=== PATIENT | female | born 1960 | race African-American/Black ===

== ENCOUNTER 2016-11-17 13:48 | Inpatient (IN) | payer BC ==
[~2016-11-17] VITALS: Ht 165.1 cm; Wt 90.0 kg
[~2016-11-17 13:48] MED LIST: ADV25050 INH; ALBU8.5H5 IH; AMLO5TAB4 PO; AZIT250T94 PO; BECL8.7A INH; BENA1TAB13 PO; CODE118S PO; FLUT16SP24 NASAL; FURO-109 PO; HYDR-3498 PO; PRED20TA PO; RTPRO NEB
[2016-11-17] MEDS ORDERED: SOD CHLORIDE 0.9% 500 ML IV STA (14:02)
[2016-11-17] MEDS ORDERED: ALBUTEROL 0.5% (NEB) 2.5 MG/0.5 ML AMP INH STA (14:02)
[2016-11-17] MEDS ORDERED: IPRATROPIUM (NEB) 0.5 MG/2.5 ML AMP INH STA (14:02)
[2016-11-17] MEDS ORDERED: METHYLPREDNISOLONE 125 MG INJ IV STA (14:02)
[2016-11-17] MEDS ORDERED: ALBUTEROL 0.5% (NEB) 2.5 MG/0.5 ML AMP ONE (14:03)
[2016-11-17] MEDS ORDERED: IPRATROPIUM (NEB) 0.5 MG/2.5 ML AMP ONE (14:03)
[2016-11-17] MEDS ORDERED: FUROSEMIDE 40 MG INJ IV ONE ×2 (14:30)
[2016-11-17 14:41] LABS: ADD SCAN DIFF NO
--- NOTE | 2016-11-17 14:41 | RADRPT ---
PROCEDURE: XR Chest. CLINICAL INDICATION: Shortness of breath. Asthma exacerbation. TECHNIQUE: Single frontal view. COMPARISON: 02/14/2015. FINDINGS: The lungs are clear. The heart size is normal. There is no pleural effusion. There is no pneumothorax. IMPRESSION: 1. Normal chest radiograph. RPTAT: QQ .Leno Woo MD, MD Date Time Electronically viewed and signed by .Leno Woo MD, on 11/17/2016 14:41 .R/
[2016-11-17 14:45] LABS: BASOPHILS % 0.2 % (0.0-2.0); EOSINOPHILS # 0.1 10^3/ul (0.0-0.5); EOSINOPHILS % 0.7 % (0.0-7.0); HEMATOCRIT 37.1 % (37.0-47.0); HEMOGLOBIN 11.9 g/dl (12.0-16.0); LYMPHOCYTES # 1.4 10^3/ul (0.8-2.9); LYMPHOCYTES % 15.5 % (15.0-51.0); MEAN CORPUSCULAR HEMOGLOBIN 27.6 pg (29.0-33.0); MEAN CORPUSCULAR HGB CONC 32.1 g/dl (32.0-37.0); MEAN CORPUSCULAR VOLUME 86.1 fl (82.0-101.0); MEAN PLATELET VOLUME 10.8 fl (7.4-10.4); MONOCYTE # 0.4 10^3/ul (0.3-0.9); NEUTROPHIL # 6.9 10^3/ul (1.6-7.5); PLATELET COUNT 255 10^3/UL (140-415); RED BLOOD COUNT 4.31 10^6/ul (4.20-5.40); RED CELL DISTRIBUTION WIDTH 14.6 % (11.5-14.5); WHITE BLOOD COUNT 8.9 10^3/ul (4.8-10.8)
--- NOTE | 2016-11-17 14:54 | ERA ---
ER Documentation Chief Complaint Date/Time DATE: 11/17/16 TIME: 14:52 Chief Complaint asthma attack today, out of meds x 1 week HPI 56-year-old woman with long history of asthma presents with shortness of breath. She states she's having an asthma attack and ran out of her albuterol pump about a week ago. She smokes marijuana daily. Patient denies fevers or chills, no vomiting or diarrhea, no chest pain. ROS All systems reviewed and are negative except as per history of present illness. Medications Home Meds Reported Medications Furosemide* (Furosemide*) 40 Mg Tablet, 40 MG PO DAILY, TAB 11/17/16 Hydrocodone/Acetaminophen ([place] 10-325 Tablet) 1 Each Tablet, 1 EACH PO DAILY Y for PRN, TAB 11/17/16 Fluticasone Propionate* (Fluticasone Propionate* Nasal) 50 Mcg/[place] - 16 Gm [place].susp, 1 SPRAY NASAL BID, #1 BOTTLE TO EACH NOSTRIL 11/17/16 Benazepril Hcl* (Benazepril Hcl*) 10 Mg Tablet, 10 MG PO DAILY, #30 TAB 11/17/16 Prednisone* (Prednisone*) 10 Mg Tab, 10 MG PO DAILY, TAB 3TAB-3 DAYS, 2TAB-3 DAYS, 1TAB-3 DAYS 11/17/16 Albuterol Sulfate* (Ventolin HFA*) 18 Gm Hfa.aer.ad, 2 PUFF INHALATION Q4H, #1 INHALER 11/17/16 Discontinued Reported Medications Fluticasone Propionate* (Flonase* Nasal) 50 Mcg/[place] - 16 Gm [place].susp, 1 SPRAY NASAL BID, SPRAY (TO EACH NOSTRIL) 02/02/15 Amlodipine Besylate* (Norvasc*) 5 Mg Tablet, 5 MG PO DAILY, TAB 02/02/15 Hydrocodone Bit-Acetaminophen* ([place]*) 5-325 Mg Tab, 1 TAB PO Q4H Y for PAIN, TAB 02/02/15 Salmeterol Xinaf/Fluticasone* (Advair*) 250-50 Diskus Inhaler, 1 INH INH BID, INH 02/02/15 Benazepril-Hydrochlorothiazide (Benazepril-Hydrochlorothiazide) 20-12.5 Mg Tablet, 1 EACH PO DAILY, TAB 02/02/15 Discontinued Scripts Furosemide* (Lasix*) 40 Mg Tablet, 40 MG PO DAILY, #20 TAB Prov:MARIA ZARAGOZA MD 02/05/15 Beclomethasone Dip* (Qvar 40*) 7.3 Gm Inha, 2 PUFF INH BID, #1 INH Prov:ZORA LAMBERT MD 02/02/15 Albuterol Sulfate* (Albuterol Sulfate* HFA) 8.5 Gm Hfa.aer.ad, 2 PUFF IH Q4H Y for WHEEZING AND SOB, #1 EA Prov:ZORA LAMBERT MD 02/02/15 Albuterol Sulfate* (Proventil* Neb) 0.083% Neb, 2.5 MG NEB Q4 Y for SHORTNESS OF BREATH, #30 EA Prov:ZORA LAMBERT MD 02/02/15 Promethazine w/Codeine (Phenergan w/Codeine Syrup) 5 Ml Syrup, 5 ML PO Q6 Y for COUGH, #120 ML Prov:ZORA LAMBERT MD 02/02/15 Azithromycin* (Zithromax*) 250 Mg Tablet, 250 MG PO .ZPACK DIRECTED, #6 TAB TAKE 500 MG (2 TABS) THE FIRST DAY THEN 250 MG (1 TAB) DAYS 2-5 Prov:ZORA LAMBERT MD 02/02/15 Prednisone* (Prednisone*) 20 Mg Tab, 60 MG PO DAILY for 5 Days Prov:ZORA LAMBERT MD 02/02/15 Allergies Allergies: Coded Allergies: No Known Allergy (Verified , 11/17/16) PMhx/Soc Asthma, hypertension, psychiatric illness, obesity, post cholecystectomy History of Surgery: Yes (FIBROIDS 2006) Anesthesia Reaction: No Hx Neurological Disorder: No Hx Respiratory Disorders: Yes (ASTHMA ) Hx Cardiac Disorders: Yes (HTN ) Hx Psychiatric Problems: No Hx Miscellaneous Medical Probl: No Hx Alcohol Use: No Hx Substance Use: No Hx Tobacco Use: Yes Smoking Status: Current every day smoker FmHx Family History: No diabetes Physical Exam Vitals Vital Signs Date Time Temp Pulse Resp B/P Pulse Ox O2 Delivery O2 Flow Rate FiO2 11/17/16 16:00 74 19 155/80 98 11/17/16 14:37 76 22 151/85 100 Mask 10.0 11/17/16 14:13 108 24 95 21 11/17/16 13:58 Nasal Cannula 2.0 11/17/16 13:52 98.1 78 24 173/92 96 Physical Exam GENERAL: Well-developed, well-nourished, dyspneic HEENT: Moist mucous membranes, pink conjunctiva, no cervical spine tenderness or step-off deformities, no goiter, no jaundice or icterus, extraocular movements intact without pain. No submandibular induration, and no pharyngeal erythema NEURO: Alert and oriented 3, cranial nerves II through XII intact bilaterally, pupils equal round reactive to light, no focal deficits or facial asymmetry, sensation intact distally Strength 5/5 in upper and lower extremities bilaterally CARDIAC: Regular rate and rhythm, no murmurs rubs or gallops LUNGS: Dense wheezes bilaterally, no crackles or stridor ABDOMEN: Soft nontender, no guarding, no rigidity, no rebound, no psoas sign no obturator sign. Normoactive bowel sounds SKIN: Warm and dry to touch, no abrasions, contusions, or hematomas, no lacerations, no ecchymosis, no target lesions, and without ulcers EXTREMITIES: No clubbing cyanosis, 3+ pitting edema in the lower extremities bilaterally calves are bilaterally symmetrical, no Homans sign, no popliteal cord sign. Distal pulses equal and bilateral PSYCH: Normal affect without agitation or irritability Result Diagram: 11/17/16 1430 11/17/16 1430 Results 24 hrs Laboratory Tests Test 11/17/16 14:30 White Blood Count 8.910^3/ul Red Blood Count 4.3110^6/ul Hemoglobin 11.9g/dl Hematocrit 37.1% Mean Corpuscular Volume 86.1fl Mean Corpuscular Hemoglobin 27.6pg Mean Corpuscular Hemoglobin Concent 32.1g/dl Red Cell Distribution Width 14.6% Platelet Count 66951^3/UL Mean Platelet Volume 10.8fl Neutrophils % 78.0% Lymphocytes % 15.5% Monocytes % 5.0% Eosinophils % 0.7% Basophils % 0.2% Nucleated Red Blood Cells % 0.0/100WBC Neutrophils # 6.910^3/ul Lymphocytes # 1.410^3/ul Monocytes # 0.410^3/ul Eosinophils # 0.110^3/ul Basophils # 0.010^3/ul Nucleated Red Blood Cells # 0.010^3/ul Sodium Level 143mmol/L Potassium Level 4.0mmol/L Chloride Level 106mmol/L Carbon Dioxide Level 27mmol/L Anion Gap 14 Blood Urea Nitrogen 23mg/dl Creatinine 0.92mg/dl Glucose Level 128mg/dl Calcium Level 8.8mg/dl Troponin I 0.079ng/ml B-Type Natriuretic Peptide 208PG/ML Triglycerides Level 70mg/dl Cholesterol Level 130mg/dl LDL Cholesterol, Calculated 44mg/dl HDL Cholesterol 72mg/dl Cholesterol/HDL Ratio 1.8RATIO Current Medications Medications (Trade) Dose Ordered Sig/[place] Route PRN Reason Start Time Stop Time Status Last Admin Dose Admin Sodium Chloride (NS) 500 ml @ 500 mls/hr Q1H STAT IV 11/17/16 14:02 11/17/16 15:01 DC 11/17/16 14:24 Albuterol (Proventil 0.5% (Neb)) 10 mg ONCE STAT INH 11/17/16 14:02 11/17/16 14:04 DC 11/17/16 14:12 Ipratropium [place] (Atrovent 0.02% (Neb)) 1 mg ONCE STAT INH 11/17/16 14:02 11/17/16 14:04 DC 11/17/16 14:12 Methylprednisolone Sodium Succinate (Solu-Medrol) 125 mg ONCE STAT IV 11/17/16 14:02 11/17/16 14:04 DC 11/17/16 14:23 Furosemide (Lasix) 40 mg ONCE ONCE IV 11/17/16 14:30 11/17/16 14:31 DC 11/17/16 14:27 Furosemide 40 mg 40 mg ONCE ONCE IV 11/17/16 14:30 11/17/16 14:31 DC 11/17/16 14:46 Magnesium Sulfate/ Dextrose (Magnesium Sulfate 1 Gm/D5W) 100 ml @ 100 mls/hr ONCE ONCE IVPB 11/17/16 15:00 11/17/16 15:59 DC 11/17/16 14:46 Procedures/MDM IV line was established patient was placed on school bus monitor rhythm strip revealed a normal sinus rhythm at about 70 bpm with upright P and T waves. Patient was afebrile. EKG performed, read by me: 67 bpm, normal sinus rhythm, normal axis, no acute ST segment changes, narrow QRS complex, with good R-wave progression in precordial leads. I administered 500 mL normal saline intravenously, albuterol 10 mg via nebulizer , ipratropium 1 mg via nebulizer, methylprednisolone 125 mg IV, and magnesium 1 g IV for asthma. Chest X-ray 1V Interpreted by me: Soft Tissue: No acute abnormalities Bones: No acute abnormalities Mediastinum/Cardiac Silhouette/Lungs: No acute abnormalities CBC and a left lites were unremarkable, liver function tests are normal, troponin was negative. BNP was low. Departure Diagnosis: Primary Impression: Asthma attack Additional Impressions: Peripheral edema Marijuana abuse Condition: CALVIN Jeffery MD Nov 17, 2016 14:54
[2016-11-17 14:57] LABS: CREATININE 0.92 mg/dl (0.44-1.00)
[2016-11-17 14:58] LABS: CALCIUM 8.8 mg/dl (8.4-10.2)
[2016-11-17] MEDS ORDERED: MAGNESIUM SULFATE 1 GM/D5W 100 ML IVPB ONE (15:00)
[2016-11-17] MEDS ORDERED: ALBU18HF INHALATION (15:01)
[2016-11-17] MEDS ORDERED: PRED10TA PO (15:04)
[2016-11-17] MEDS ORDERED: FLUT16SP17 NASAL (15:04)
[2016-11-17] MEDS ORDERED: BENA10TA48 PO (15:04)
[2016-11-17] MEDS ORDERED: FURO40TA4 PO (15:05)
[2016-11-17] MEDS ORDERED: HYDR-902 PO (15:05)
[2016-11-17 15:10] LABS: TROPONIN-I 0.079 ng/ml (0.00-0.12)
--- NOTE | 2016-11-17 16:28 | HP ---
Date/Time of Note Date/Time of Note DATE: 11/17/16 TIME: 16:20 Assessment/Plan VTE Prophylaxis VTE Prophylaxis Intervention: SCD's Assessment/Plan Assessment/Plan -Asthma Exacerbation -admit to floor - resume home meds -Hypertension - -Current Tobacooism - smoking cessation - Psychiatric illness -Obesity - weight managment -SPcholecystectomy - SCD for DVT prophylaxis - Protonix for GI prophylaxis HPI/ROS Admit Date/Time Admit Date/Time Hx of Present Illness asthma attack today, out of meds x 1 week ROS All systems reviewed and are negative except as per history of present illness. Medications Home Meds Active Scripts Furosemide* (Lasix*) 40 Mg Tablet, 40 MG PO DAILY, #20 TAB Prov:MARIA ZARAGOZA MD 02/05/15 Beclomethasone Dip* (Qvar 40*) 7.3 Gm Inha, 2 PUFF INH BID, #1 INH Prov:ZORA LAMBERT MD 02/02/15 Albuterol Sulfate* (Albuterol Sulfate* HFA) 8.5 Gm Hfa.aer.ad, 2 PUFF IH Q4H Y for WHEEZING AND SOB, #1 EA Prov:ZORA LAMBERT MD 02/02/15 Albuterol Sulfate* (Proventil* Neb) 0.083% Neb, 2.5 MG NEB Q4 Y for SHORTNESS OF BREATH, #30 EA Prov:ZORA LAMBERT MD 02/02/15 Promethazine w/Codeine (Phenergan w/Codeine Syrup) 5 Ml Syrup, 5 ML PO Q6 Y for COUGH, #120 ML Prov:ZORA LAMBERT MD 02/02/15 Azithromycin* (Zithromax*) 250 Mg Tablet, 250 MG PO .ZPACK DIRECTED, #6 TAB TAKE 500 MG (2 TABS) THE FIRST DAY THEN 250 MG (1 TAB) DAYS 2-5 Prov:ZORA LAMBERT MD 02/02/15 Prednisone* (Prednisone*) 20 Mg Tab, 60 MG PO DAILY for 5 Days Prov:ZORA LAMBERT MD 02/02/15 Reported Medications Fluticasone Propionate* (Flonase* Nasal) 50 Mcg/[place] - 16 Gm [place].susp, 1 SPRAY NASAL BID, SPRAY (TO EACH NOSTRIL) 6/24/15 Amlodipine Besylate* (Norvasc*) 5 Mg Tablet, 5 MG PO DAILY, TAB 02/02/15 Hydrocodone Bit-Acetaminophen* ([place]*) 5-325 Mg Tab, 1 TAB PO Q4H Y for PAIN, TAB 02/02/15 Salmeterol Xinaf/Fluticasone* (Advair*) 250-50 Diskus Inhaler, 1 INH INH BID, INH 02/02/15 Benazepril-Hydrochlorothiazide (Benazepril-Hydrochlorothiazide) 20-12.5 Mg Tablet, 1 EACH PO DAILY, TAB 02/02/15 Allergies Allergies: Coded Allergies: No Known Allergy (Verified , 02/14/15) ROS Constitutional: improved Eyes: no complaints ENT: no complaints Respiratory: shortness of breath, wheezing Cardiovascular: no complaints Gastrointestinal: no complaints Genitourinary: no complaints Musculoskeletal: no complaints Skin: no complaints Neurologic: no complaints Endocrine: no complaints Lymphatic: no complaints Psychological: no complaints Immunologic: no complaints PMH/Family/Social Past Medical History PMhx/Soc Asthma, hypertension, psychiatric illness, obesity, post cholecystectomy History of Surgery: Yes (FIBROIDS 2006) Anesthesia Reaction: No Hx Neurological Disorder: No Hx Respiratory Disorders: Yes (ASTHMA ) Hx Cardiac Disorders: Yes (HTN ) Hx Psychiatric Problems: No Hx Miscellaneous Medical Probl: No Hx Alcohol Use: No Hx Substance Use: No Hx Tobacco Use: Yes Smoking Status: Current every day smoker FmHx Family History: No diabetes Family History Significant Family History: no pertinent family hx Social History Alcohol Use: none Smoking Status: Current every day smoker Drug Use: other (WEEDS) Exam/Review of Systems Vital Signs Vitals Vital Signs Date Time Temp Pulse Resp B/P Pulse Ox O2 Delivery O2 Flow Rate FiO2 11/17/16 14:37 76 22 151/85 100 Mask 10.0 11/17/16 14:13 21 11/17/16 13:52 98.1 Exam Constitutional: alert, oriented, other Psych: nl mood/affect Head: normocephalic Eyes: EOMI, nl conjunctiva, nl sclera ENMT: nl external ears & nose Neck: non-tender Respiratory: wheezing Cardiovascular: nl pulses Gastrointestinal: non-tender, soft Musculoskeletal: nl extremities to inspection Extremities: normal pulses Neurological: nl mental status, nl speech Skin: nl turgor Lymph: nontender Labs Result Diagram: 4/8/17 1430 11/17/16 1430 Procedures Procedures EKG performed - 67 bpm, normal sinus rhythm, normal axis, no acute ST segment changes, narrow QRS complex, with good R-wave progression in precordial leads. CXR- WNL JACOB GILES Nov 17, 2016 16:28
[2016-11-17] MEDS ORDERED: HYDROCODONE/APAP (5/325) TAB PO PRN (17:00)
[2016-11-17] MEDS ORDERED: HYDROCODONE/APAP (10/325) TAB PO PRN (17:00)
[2016-11-17] MEDS ORDERED: ONDANSETRON 4 MG INJ IV PRN (17:00)
[2016-11-17] MEDS ORDERED: ACETAMINOPHEN 325 MG TAB PO PRN (17:00)
[2016-11-17 17:10] LABS: CHOL/HDL RATIO 1.8 RATIO
[2016-11-17] MEDS ORDERED: CEFTRIAXONE 1 GM/50 ML (PMX) 50 ML IVPB SCH (17:30)
[2016-11-17] MEDS: ALBUTEROL HFA 8 GM INHALER INH SCH ×2 (17:50→22:46)
[2016-11-17] MEDS: IPRATROPIUM (NEB) 0.5 MG/2.5 ML AMP HHN SCH (18:00)
[2016-11-17] MEDS ORDERED: ALBUTEROL/IPRATROPIUM (NEB) 3 ML AMP HHN STA (18:26)
[2016-11-17] MEDS ORDERED: MONTELUKAST 10 MG TAB PO SCH (18:30)
[2016-11-17 19:11] VITALS: PULSE 90
[2016-11-17 19:12] VITALS: Ht 165.1 cm; Wt 90.0 kg
[2016-11-17] MEDS: BENAZEPRIL 10 MG TAB PO SCH (20:19)
[2016-11-17] MEDS: PROMETHAZINE/CODEINE 5ML CUP PO PRN (20:19)
[2016-11-17] MEDS: METHYLPREDNISOLONE 125 MG INJ IV SCH (20:19)
[2016-11-17 20:23] VITALS: PULSE 95
[2016-11-17 20:40] VITALS: BP 181/84; RESP 18
[2016-11-17] MEDS ORDERED: METHYLPREDNISOLONE 40 MG INJ IV SCH ×2 (21:00)
[2016-11-17] MEDS: FLUTICASONE 0.05% 16 GM NAS SPRAY NASAL SCH (22:45)
[2016-11-17] MEDS: SALMETEROL/FLUTICASONE 500/50 INHA INH SCH (22:45)
[2016-11-18] VITALS (7 sets, daily range): BP systolic 141–191; BP diastolic 77–94; PULSE 60–100; RESP 16–20
[2016-11-18] MEDS: AMLODIPINE 5 MG TAB PO SCH ×2 (01:00→08:15)
[2016-11-18] MEDS: hydrALAzine 20 MG INJ IV SCH ×3 (01:00→08:20)
[2016-11-18] MEDS: ALBUTEROL HFA 8 GM INHALER INH SCH ×2 (01:02→05:45)
[2016-11-18] MEDS: IPRATROPIUM (NEB) 0.5 MG/2.5 ML AMP HHN SCH ×2 (01:24→09:12)
[2016-11-18] MEDS: PROMETHAZINE/CODEINE 5ML CUP PO PRN (01:36)
--- NOTE | 2016-11-18 03:15 | CONS ---
DATE OF ADMISSION: 11/17/2016 DATE OF CONSULTATION: 11/17/2016 TYPE OF CONSULTATION: Pulmonary. PRIMARY PHYSICIAN: Dr. Jacob Giles REASON FOR CONSULTATION: Shortness of breath. HISTORY OF PRESENT ILLNESS: Briefly, this is a 56-year-old female with a history of persistent asth ma status post prior exacerbations requiring chronic corticosteroids despite suboptimal management w ith inhaled corticosteroids and bronchodilators who presents today after smoking some marijuana with acute bronchospasm. In the emergency room, the patient received magnesium sulfate, Solu-Medrol, an d bronchodilators and has had significant improvement already. PAST MEDICAL HISTORY: As noted above. Additionally, history of obesity, possible obstructive sleep apnea. MEDICATIONS: Please see MAR. ALLERGIES: NONE. SOCIAL HISTORY: Positive tobacco, no alcohol or illicit drug use. FAMILY HISTORY: Noncontributory. REVIEW OF SYSTEMS: As noted in the HPI. PHYSICAL EXAMINATION: VITAL SIGNS: Heart rate is 108, blood pressure is 173/92, oxygen saturation is 96% on 2 liters nasa l cannula. HEENT: Normocephalic, atraumatic. Oropharynx is crowded with a lot of redundant soft tissue. CARDIOVASCULAR: Tachycardic, S1 and S2. No murmurs, rubs, or gallops. CHEST: There is diffuse wheezing bilaterally and slightly reduced breath sounds. ABDOMEN: Obese, nontender. EXTREMITIES: No cyanosis, clubbing, or edema. LABORATORY DATA: Chemistries within normal limits. WBC is 8.9, hemoglobin is 11.9. Chest x-ray is within normal limits. IMPRESSION: Acute asthma exacerbation, likely precipitated by inhalation of smoke in a patient with poorly controlled and managed asthma. RECOMMENDATIONS: 1. Nebulized treatments around the clock. 2. Solu-Medrol 60 mg IV q. 8 hours for now. 3. Would start Singulair 10 mg p.o. at bedtime. 4. We will start long-acting beta agonist inhaled glucocorticoid with Advair 250/50, two puffs b.i. d. 5. May need to address her underlying allergy issues as well as diagnose and treat suspected sleep apnea as that may also trigger her asthma to be poorly controlled. Dictated By: MICHELE ROBERTS/YOSELIN Conf#: [id number] DID#: [id number] CC: JACOB GILES NP; TASHIA FARRELL MD;*EndCC*
[2016-11-18] MEDS: METHYLPREDNISOLONE 125 MG INJ IV SCH (05:46)
[2016-11-18 06:43] LABS: ALBUMIN 4.2 g/dl (3.3-4.9)
[2016-11-18 06:44] LABS: POTASSIUM 3.5 mmol/L (3.5-5.1)
[2016-11-18 06:46] LABS: ALBUMIN/GLOBULIN RATIO 1.2; BILIRUBIN,INDIRECT 0.2 mg/dl (0-1.1); BILIRUBIN,TOTAL 0.2 mg/dl (0.2-1.3); CREATININE 0.9 mg/dl (0.44-1.00); TOTAL PROTEIN 7.7 g/dl (6.1-8.1)
[2016-11-18 06:47] LABS: CALCIUM 9.6 mg/dl (8.4-10.2)
[2016-11-18] MEDS: SALMETEROL/FLUTICASONE 500/50 INHA INH SCH (08:11)
[2016-11-18] MEDS: FLUTICASONE 0.05% 16 GM NAS SPRAY NASAL SCH (08:11)
[2016-11-18] MEDS: BENAZEPRIL 10 MG TAB PO SCH (08:15)
[2016-11-18] MEDS ORDERED: FUROSEMIDE 40 MG TAB PO SCH (09:00)
[2016-11-18] MEDS ORDERED: ENOXAPARIN 40 MG/0.4 ML SYG SC SCH (09:00)
[2016-11-18] MEDS ORDERED: DOCUSATE SODIUM 100 MG CAP PO SCH (09:00)
[2016-11-18] MEDS ORDERED: NICOTINE (14 MG/24 HR) PATCH TRANSDERM SCH (09:00)
[2016-11-18] MEDS ORDERED: AMLODIPINE 5 MG TAB PO SCH (09:00)
[2016-11-18] MEDS ORDERED: PANTOPRAZOLE (EC) 40 MG TAB PO SCH (09:00)
[2016-11-18] MEDS ORDERED: FUROSEMIDE 40 MG INJ IV SCH (09:00)
--- NOTE | 2016-11-18 11:53 | CONS ---
Date/Time of Note Date/Time of Note DATE: 11/18/16 TIME: 11:49 Consult Date/Type/Reason Admit Date/Time Nov 17, 2016 at 16:18 Initial Consult Date Subjective Patient requesting to leave and wanting to sign AMA. Objective Vital Signs Date Time Temp Pulse Resp B/P Pulse Ox O2 Delivery O2 Flow Rate FiO2 11/18/16 09:15 104 20 94 21 11/18/16 09:15 11/18/16 07:41 97.9 174/80 Exam HEENT: Neck supple; no JVD; no LAD CVS: RRR, S1 and S2 CHEST: + wheezing ABD: Soft, NT, + BS EXT: No c/c/e Results/Medications Result Diagram: 11/17/16 1430 11/18/16 0550 Results 24 hrs Laboratory Tests Test 11/17/16 14:30 11/18/16 05:50 White Blood Count 8.9 Red Blood Count 4.31 Hemoglobin 11.9 L Hematocrit 37.1 Mean Corpuscular Volume 86.1 Mean Corpuscular Hemoglobin 27.6 L Mean Corpuscular Hemoglobin Concent 32.1 Red Cell Distribution Width 14.6 H Platelet Count 255 Mean Platelet Volume 10.8 #H Neutrophils % 78.0 H Lymphocytes % 15.5 Monocytes % 5.0 Eosinophils % 0.7 Basophils % 0.2 Nucleated Red Blood Cells % 0.0 Neutrophils # 6.9 Lymphocytes # 1.4 Monocytes # 0.4 Eosinophils # 0.1 Basophils # 0.0 Nucleated Red Blood Cells # 0.0 Sodium Level 143 142 Potassium Level 4.0 3.5 Chloride Level 106 102 Carbon Dioxide Level 27 27 Anion Gap 14 17 H Blood Urea Nitrogen 23 H 24 H Creatinine 0.92 0.90 Glucose Level 128 174 Calcium Level 8.8 9.6 Troponin I 0.079 B-Type Natriuretic Peptide 208 H Triglycerides Level 70 Cholesterol Level 130 LDL Cholesterol, Calculated 44 HDL Cholesterol 72 Cholesterol/HDL Ratio 1.8 Magnesium Level 2.1 Total Bilirubin 0.2 Direct Bilirubin 0.00 Indirect Bilirubin 0.2 Aspartate Amino Transf (AST/SGOT) 24 Alanine Aminotransferase (ALT/SGPT) 31 Alkaline Phosphatase 111 Total Protein 7.7 Albumin 4.2 Globulin 3.50 H Albumin/Globulin Ratio 1.20 Assessment/Plan Additional Assessment/Plan IMP: 1. Asthma Exacerbation RECS: 1. Advair 500/50 i puff BID; singulair 10 mg daily; and albuterol prn 2. Medrol dose pack 3. Outpatient PFTs and PSG MICHELE ELMORE MD Nov 18, 2016 11:53
--- NOTE | 2016-11-18 18:03 | DS ---
Date/Time of Note Date/Time of Note DATE: 11/18/16 TIME: 18:03 Discharge Summary Admission/Discharge Info Admit Date/Time Nov 17, 2016 at 16:18 Discharge Date/Time Nov 18, 2016 at 10:55 Hx of Present Illness asthma attack today, out of meds x 1 week ROS All systems reviewed and are negative except as per history of present illness. Medications Home Meds Active Scripts Furosemide* (Lasix*) 40 Mg Tablet, 40 MG PO DAILY, #20 TAB Prov:MARIA ZARAGOZA MD 02/05/15 Beclomethasone Dip* (Qvar 40*) 7.3 Gm Inha, 2 PUFF INH BID, #1 INH Prov:ZORA LAMBERT MD 02/02/15 Albuterol Sulfate* (Albuterol Sulfate* HFA) 8.5 Gm Hfa.aer.ad, 2 PUFF IH Q4H Y for WHEEZING AND SOB, #1 EA Prov:ZORA LAMBERT MD 02/02/15 Albuterol Sulfate* (Proventil* Neb) 0.083% Neb, 2.5 MG NEB Q4 Y for SHORTNESS OF BREATH, #30 EA Prov:ZORA LAMBERT MD 02/02/15 Promethazine w/Codeine (Phenergan w/Codeine Syrup) 5 Ml Syrup, 5 ML PO Q6 Y for COUGH, #120 ML Prov:ZORA LAMBERT MD 02/02/15 Azithromycin* (Zithromax*) 250 Mg Tablet, 250 MG PO .ZPACK DIRECTED, #6 TAB TAKE 500 MG (2 TABS) THE FIRST DAY THEN 250 MG (1 TAB) DAYS 2-5 Prov:ZORA LAMBERT MD 02/02/15 Prednisone* (Prednisone*) 20 Mg Tab, 60 MG PO DAILY for 5 Days Prov:ZORA LAMBERT MD 02/02/15 Reported Medications Fluticasone Propionate* (Flonase* Nasal) 50 Mcg/[place] - 16 Gm [place].susp, 1 SPRAY NASAL BID, SPRAY (TO EACH NOSTRIL) 02/02/15 Amlodipine Besylate* (Norvasc*) 5 Mg Tablet, 5 MG PO DAILY, TAB 02/02/15 Hydrocodone Bit-Acetaminophen* ([place]*) 5-325 Mg Tab, 1 TAB PO Q4H Y for PAIN, TAB 02/02/15 Salmeterol Xinaf/Fluticasone* (Advair*) 250-50 Diskus Inhaler, 1 INH INH BID, INH 02/02/15 Benazepril-Hydrochlorothiazide (Benazepril-Hydrochlorothiazide) 20-12.5 Mg Tablet, 1 EACH PO DAILY, TAB 02/02/15 Allergies Allergies: Coded Allergies: No Known Allergy (Verified , 02/14/15) Home Meds Reported Medications Furosemide* (Furosemide*) 40 Mg Tablet, 40 MG PO DAILY, TAB 11/17/16 Hydrocodone/Acetaminophen ([place] 10-325 Tablet) 1 Each Tablet, 1 EACH PO DAILY Y for PRN, TAB 11/17/16 Fluticasone Propionate* (Fluticasone Propionate* Nasal) 50 Mcg/[place] - 16 Gm [place].susp, 1 SPRAY NASAL BID, #1 BOTTLE TO EACH NOSTRIL 11/17/16 Benazepril Hcl* (Benazepril Hcl*) 10 Mg Tablet, 10 MG PO DAILY, #30 TAB 11/17/16 Prednisone* (Prednisone*) 10 Mg Tab, 10 MG PO DAILY, TAB 3TAB-3 DAYS, 2TAB-3 DAYS, 1TAB-3 DAYS 11/17/16 Albuterol Sulfate* (Ventolin HFA*) 18 Gm Hfa.aer.ad, 2 PUFF INHALATION Q4H, #1 INHALER 11/17/16 Discontinued Reported Medications Fluticasone Propionate* (Flonase* Nasal) 50 Mcg/[place] - 16 Gm [place].susp, 1 SPRAY NASAL BID, SPRAY (TO EACH NOSTRIL) 02/02/15 Amlodipine Besylate* (Norvasc*) 5 Mg Tablet, 5 MG PO DAILY, TAB 02/02/15 Hydrocodone Bit-Acetaminophen* ([place]*) 5-325 Mg Tab, 1 TAB PO Q4H Y for PAIN, TAB 02/02/15 Salmeterol Xinaf/Fluticasone* (Advair*) 250-50 Diskus Inhaler, 1 INH INH BID, INH 02/02/15 Benazepril-Hydrochlorothiazide (Benazepril-Hydrochlorothiazide) 20-12.5 Mg Tablet, 1 EACH PO DAILY, TAB 02/02/15 Discontinued Scripts Furosemide* (Lasix*) 40 Mg Tablet, 40 MG PO DAILY, #20 TAB Prov:BUSELLI,MARIA V. MD 02/05/15 Beclomethasone Dip* (Qvar 40*) 7.3 Gm Inha, 2 PUFF INH BID, #1 INH Prov:ZOAR LAMBERT MD 02/02/15 Albuterol Sulfate* (Albuterol Sulfate* HFA) 8.5 Gm Hfa.aer.ad, 2 PUFF IH Q4H Y for WHEEZING AND SOB, #1 EA Prov:ZORA LAMBERT MD 02/02/15 Albuterol Sulfate* (Proventil* Neb) 0.083% Neb, 2.5 MG NEB Q4 Y for SHORTNESS OF BREATH, #30 EA Prov:ZORA LAMBERT MD 02/02/15 Promethazine w/Codeine (Phenergan w/Codeine Syrup) 5 Ml Syrup, 5 ML PO Q6 Y for COUGH, #120 ML Prov:ZORA LAMBERT MD 02/02/15 Azithromycin* (Zithromax*) 250 Mg Tablet, 250 MG PO .[place]PACK DIRECTED, #6 TAB TAKE 500 MG (2 TABS) THE FIRST DAY THEN 250 MG (1 TAB) DAYS 2-5 Prov:ZORA LAMBERT MD 02/02/15 Prednisone* (Prednisone*) 20 Mg Tab, 60 MG PO DAILY for 5 Days Prov:ZORA LAMBERT MD 02/02/15 Pending Labs Laboratory Tests Test 11/18/16 05:50 Sodium Level 142mmol/L (135-144) Potassium Level 3.5mmol/L (3.5-5.1) Chloride Level 102mmol/L (97-110) Carbon Dioxide Level 27mmol/L (21-31) Anion Gap 17 (8-16) Blood Urea Nitrogen 24mg/dl (7-20) Creatinine 0.90mg/dl (0.44-1.00) Glucose Level 174mg/dl (70-220) Calcium Level 9.6mg/dl (8.4-10.2) Magnesium Level 2.1mg/dl (1.7-2.5) Total Bilirubin 0.2mg/dl (0.2-1.3) Direct Bilirubin 0.00mg/dl (0.00-0.20) Indirect Bilirubin 0.2mg/dl (0-1.1) Aspartate Amino Transf (AST/SGOT) 24IU/L (15-46) Alanine Aminotransferase (ALT/SGPT) 31IU/L (13-69) Alkaline Phosphatase 111IU/L (42-121) Total Protein 7.7g/dl (6.1-8.1) Albumin 4.2g/dl (3.3-4.9) Globulin 3.50g/dl (1.3-3.2) Albumin/Globulin Ratio 1.20 JACOB GILES Nov 18, 2016 18:03
== END 2016-11-18 10:55 | disposition left against medical advice (07) | DRG 203 ==
LOC: E/R 13:48 → MS4 16:18
PROVIDERS: ADMIT Internal Medicine; ATTEND Internal Medicine
DX: J45.901 Unspecified asthma with (acute) exacerbation (principal); I10 Essential (primary) hypertension; E66.9 Obesity, unspecified; Z68.33 Body mass index [BMI] 33.0-33.9, adult; F12.10 Cannabis abuse, uncomplicated
CPT/HCPCS: 71010; 80048; 80053; 80061; 83735; 83880; 84484; 85025; 93005; 94640; 94644; 94664; 96374; 96375; J0360; J0696; J1650; J1940; J2930; J3475; J7040

== ENCOUNTER 2016-11-19 23:59 | Inpatient (IN) | payer BC ==
[~2016-11-19] VITALS: Ht 149.9 cm; Wt 111.8 kg
[~2016-11-19 23:59] MED LIST changes: -ADV25050 INH; +ALBU18HF INHALATION; -ALBU8.5H5 IH; -AMLO5TAB4 PO; -AZIT250T94 PO; -BECL8.7A INH; +BENA10TA48 PO; -BENA1TAB13 PO; -CODE118S PO; +FLUT16SP17 NASAL; -FLUT16SP24 NASAL; -FURO-109 PO; +FURO40TA4 PO; -HYDR-3498 PO; +HYDR-902 PO; +PRED10TA PO; -PRED20TA PO; -RTPRO NEB
[2016-11-20] MEDS ORDERED: METHYLPREDNISOLONE 125 MG INJ IV STA (01:16)
[2016-11-20] MEDS ORDERED: ALBUTEROL 0.5% (NEB) 2.5 MG/0.5 ML AMP INH STA (01:16)
[2016-11-20] MEDS ORDERED: IPRATROPIUM (NEB) 0.5 MG/2.5 ML AMP INH STA (01:16)
[2016-11-20 01:48] LABS: ADD SCAN DIFF NO
[2016-11-20 01:52] LABS: BASOPHILS % 0.3 % (0.0-2.0); HEMATOCRIT 39.1 % (37.0-47.0); HEMOGLOBIN 12.9 g/dl (12.0-16.0); LYMPHOCYTES # 1.8 10^3/ul (0.8-2.9); LYMPHOCYTES % 12.3 % (15.0-51.0); MEAN CORPUSCULAR HEMOGLOBIN 27.7 pg (29.0-33.0); MEAN CORPUSCULAR VOLUME 83.9 fl (82.0-101.0); MEAN PLATELET VOLUME 10.6 fl (7.4-10.4); MONOCYTE # 1.2 10^3/ul (0.3-0.9); MONOCYTES % 8.2 % (0.0-11.0); NEUTROPHIL # 11.4 10^3/ul (1.6-7.5); NEUTROPHILS % 77.7 % (39.0-77.0); PLATELET COUNT 302 10^3/UL (140-415); RED BLOOD COUNT 4.66 10^6/ul (4.20-5.40); RED CELL DISTRIBUTION WIDTH 14.7 % (11.5-14.5); WHITE BLOOD COUNT 14.6 10^3/ul (4.8-10.8)
[2016-11-20 02:04] LABS: POTASSIUM 3.5 mmol/L (3.5-5.1)
[2016-11-20 02:07] LABS: CALCIUM 9.3 mg/dl (8.4-10.2); CREATININE 1.08 mg/dl (0.44-1.00)
--- NOTE | 2016-11-20 02:23 | ERA ---
ER Documentation Chief Complaint Date/Time DATE: 11/20/16 TIME: 02:21 Chief Complaint SOB X2 DAY LEFT AMA 2 DAYS AGO ADMITTED FOR PNA HPI This is a 56-year-old female who comes in shortness breath for 2 days. She is been present for days ago and left AMA. She continues to complain of shortness of breath and says she has gotten somewhat worse. No fevers no chills no nausea no vomiting no other current complaints ROS All systems reviewed and are negative except as per history of present illness. Medications Home Meds Reported Medications Furosemide* (Furosemide*) 40 Mg Tablet, 40 MG PO DAILY, TAB 11/17/16 Hydrocodone/Acetaminophen ([place] 10-325 Tablet) 1 Each Tablet, 1 EACH PO DAILY Y for PRN, TAB 11/17/16 Fluticasone Propionate* (Fluticasone Propionate* Nasal) 50 Mcg/[place] - 16 Gm [place].susp, 1 SPRAY NASAL BID, #1 BOTTLE TO EACH NOSTRIL 11/17/16 Benazepril Hcl* (Benazepril Hcl*) 10 Mg Tablet, 10 MG PO DAILY, #30 TAB 11/17/16 Prednisone* (Prednisone*) 10 Mg Tab, 10 MG PO DAILY, TAB 3TAB-3 DAYS, 2TAB-3 DAYS, 1TAB-3 DAYS 11/17/16 Albuterol Sulfate* (Ventolin HFA*) 18 Gm Hfa.aer.ad, 2 PUFF INHALATION Q4H, #1 INHALER 11/17/16 Discontinued Reported Medications Fluticasone Propionate* (Flonase* Nasal) 50 Mcg/[place] - 16 Gm [place].susp, 1 SPRAY NASAL BID, SPRAY (TO EACH NOSTRIL) 02/02/15 Amlodipine Besylate* (Norvasc*) 5 Mg Tablet, 5 MG PO DAILY, TAB 02/02/15 Hydrocodone Bit-Acetaminophen* ([place]*) 5-325 Mg Tab, 1 TAB PO Q4H Y for PAIN, TAB 02/02/15 Salmeterol Xinaf/Fluticasone* (Advair*) 250-50 Diskus Inhaler, 1 INH INH BID, INH 02/02/15 Benazepril-Hydrochlorothiazide (Benazepril-Hydrochlorothiazide) 20-12.5 Mg Tablet, 1 EACH PO DAILY, TAB 02/02/15 Discontinued Scripts Furosemide* (Lasix*) 40 Mg Tablet, 40 MG PO DAILY, #20 TAB Prov:MARIA ZARAGOZA MD 02/05/15 Beclomethasone Dip* (Qvar 40*) 7.3 Gm Inha, 2 PUFF INH BID, #1 INH Prov:ZORA LAMBERT MD 02/02/15 Albuterol Sulfate* (Albuterol Sulfate* HFA) 8.5 Gm Hfa.aer.ad, 2 PUFF IH Q4H Y for WHEEZING AND SOB, #1 EA Prov:ZORA LAMBERT MD 02/02/15 Albuterol Sulfate* (Proventil* Neb) 0.083% Neb, 2.5 MG NEB Q4 Y for SHORTNESS OF BREATH, #30 EA Prov:ZORA LAMBERT MD 02/02/15 Promethazine w/Codeine (Phenergan w/Codeine Syrup) 5 Ml Syrup, 5 ML PO Q6 Y for COUGH, #120 ML Prov:ZORA LAMBERT MD 02/02/15 Azithromycin* (Zithromax*) 250 Mg Tablet, 250 MG PO .ZPACK DIRECTED, #6 TAB TAKE 500 MG (2 TABS) THE FIRST DAY THEN 250 MG (1 TAB) DAYS 2-5 Prov:ZORA LAMBERT MD 02/02/15 Prednisone* (Prednisone*) 20 Mg Tab, 60 MG PO DAILY for 5 Days Prov:ZORA LAMBERT MD 02/02/15 Allergies Allergies: Coded Allergies: hydralazine (Unverified Allergy, Intermediate, CHEST TIGHTNESS, ITCHING, ) PMhx/Soc History of Surgery: No Anesthesia Reaction: No Hx Neurological Disorder: No Hx Respiratory Disorders: Yes (ASTHMNA) Hx Cardiac Disorders: Yes (HTN) Hx Psychiatric Problems: No Hx Alcohol Use: No Hx Substance Use: No Hx Tobacco Use: No Smoking Status: Never smoker Physical Exam Vitals Vital Signs Date Time Temp Pulse Resp B/P Pulse Ox O2 Delivery O2 Flow Rate FiO2 11/20/16 02:01 6 11/20/16 02:01 98.0 69 24 127/77 98 Mask 6.0 Nasal Cannula 11/20/16 01:28 80 24 93 21 11/20/16 00:07 98.5 107 24 131/86 95 Physical Exam Const: [] Head: Atraumatic Eyes: Normal Conjunctiva ENT: Normal External Ears, Nose and Mouth. Neck: Full range of motion..~ No meningismus. Resp: Clear to auscultation bilaterally Cardio: Regular rate and rhythm, no murmurs Abd: Soft, non tender, non distended. Normal bowel sounds Skin: No petechiae or rashes Back: No midline or flank tenderness Ext: No cyanosis, or edema Neur: Awake and alert Psych: Normal Mood and Affect Result Diagram: 11/20/1613711/20/16137 Results 24 hrs Laboratory Tests Test 11/20/16 01:38 White Blood Count 14.610^3/ul Red Blood Count 4.6610^6/ul Hemoglobin 12.9g/dl Hematocrit 39.1% Mean Corpuscular Volume 83.9fl Mean Corpuscular Hemoglobin 27.7pg Mean Corpuscular Hemoglobin Concent 33.0g/dl Red Cell Distribution Width 14.7% Platelet Count 46646^3/UL Mean Platelet Volume 10.6fl Neutrophils % 77.7% Lymphocytes % 12.3% Monocytes % 8.2% Eosinophils % 0.0% Basophils % 0.3% Nucleated Red Blood Cells % 0.0/100WBC Neutrophils # 11.410^3/ul Lymphocytes # 1.810^3/ul Monocytes # 1.210^3/ul Eosinophils # 0.010^3/ul Basophils # 0.010^3/ul Nucleated Red Blood Cells # 0.010^3/ul Sodium Level 142mmol/L Potassium Level 3.5mmol/L Chloride Level 98mmol/L Carbon Dioxide Level 33mmol/L Anion Gap 15 Blood Urea Nitrogen 31mg/dl Creatinine 1.08mg/dl Glucose Level 131mg/dl Calcium Level 9.3mg/dl Current Medications Medications (Trade) Dose Ordered Sig/[place] Route PRN Reason Start Time Stop Time Status Last Admin Dose Admin Albuterol (Proventil 0.5% (Neb)) 10 mg ONCE STAT INH 11/20/16 01:16 11/20/16 01:17 DC 11/20/16 01:22 Ipratropium [place] (Atrovent 0.02% (Neb)) 1 mg ONCE STAT INH 11/20/16 01:16 11/20/16 01:17 DC 11/20/16 01:22 Methylprednisolone Sodium Succinate (Solu-Medrol) 125 mg ONCE STAT IV 11/20/16 01:16 11/20/16 01:18 DC 11/20/16 02:00 Procedures/MDM EKG: Rate/Rhythm: Normal Sinus Rhythm QRS, ST, T-waves: No changes consistent w/ acute ischemia Impression: No evidence of ischemia or arrhythmia Chest X-ray 1V Interpreted by me: Soft Tissue: No acute abnormalities Bones: No acute abnormalities Mediastinum/Cardiac Silhouette/Lungs: No acute abnormalities Patient's respiratory symptoms have not responded to normal outpatient therapy and will require inpatient workup, monitoring, and treatment. Accepting Care Team: Current data and ongoing care discussed. Time: 225 Primary Provider: Dr. Rueda who is on-call for Dr. Morales Consulting: [XOXOXO] Outstanding Data: none Departure Diagnosis: Primary Impression: Asthma Qualified Code: J45.901 - Asthma with acute exacerbation, unspecified asthma severity Condition: Serious MOUNIKA DUMONT Nov 20, 2016 02:23
--- NOTE | 2016-11-20 02:26 | RADRPT ---
PROCEDURE: Chest. CLINICAL INDICATION: Chest pain. TECHNIQUE: Single frontal view of the chest was obtained. COMPARISON: 02/14/2015. FINDINGS: The cardiac silhouette is within normal limits. The aortic arch is unremarkable. There is no focal consolidation, vascular congestion or pleural effusion. There is no pneumothorax. IMPRESSION: No evidence for active cardiopulmonary disease. .Ozzie Merida MD, MD Date Time Electronically viewed and signed by .Ozzie Merida MD, on 11/20/2016 02:26 .T/
[2016-11-20 03:17] VITALS: TEMP 97.7
[2016-11-20 03:55] VITALS: Ht 149.9 cm; Wt 111.8 kg
[2016-11-20 04:00] VITALS: BP 151/71; PULSE 67; RESP 20
[2016-11-20] MEDS ORDERED: ALBUTEROL/IPRATROPIUM (NEB) 3 ML AMP HHN PRN (06:30)
[2016-11-20 08:01] VITALS: BP 150/75; RESP 18
[2016-11-20] MEDS: FLUTICASONE 0.05% 16 GM NAS SPRAY NASAL SCH ×2 (08:42→21:03)
[2016-11-20] MEDS: HYDROCODONE/APAP (10/325) TAB PO PRN ×2 (08:42→21:07)
[2016-11-20] MEDS: BENAZEPRIL 10 MG TAB PO SCH (08:42)
[2016-11-20] MEDS: ALBUTEROL HFA 8 GM INHALER INH SCH ×5 (08:43→22:55)
[2016-11-20] MEDS ORDERED: FUROSEMIDE 40 MG TAB PO SCH (09:00)
[2016-11-20] MEDS ORDERED: predniSONE 10 MG TAB PO SCH (09:00)
[2016-11-20] MEDS ORDERED: METHYLPREDNISOLONE 40 MG INJ IV SCH (09:00)
[2016-11-20 10:52] LABS: ADD SCAN DIFF NO
[2016-11-20 10:57] LABS: BASOPHILS % 0.1 % (0.0-2.0); HEMATOCRIT 41.9 % (37.0-47.0); HEMOGLOBIN 13.1 g/dl (12.0-16.0); MEAN CORPUSCULAR HEMOGLOBIN 26.9 pg (29.0-33.0); MEAN CORPUSCULAR HGB CONC 31.3 g/dl (32.0-37.0); MEAN PLATELET VOLUME 10.5 fl (7.4-10.4); MONOCYTE # 0.3 10^3/ul (0.3-0.9); MONOCYTES % 2.1 % (0.0-11.0); NEUTROPHIL # 12.5 10^3/ul (1.6-7.5); NEUTROPHILS % 88.7 % (39.0-77.0); PLATELET COUNT 292 10^3/UL (140-415); RED BLOOD COUNT 4.87 10^6/ul (4.20-5.40); RED CELL DISTRIBUTION WIDTH 14.8 % (11.5-14.5); WHITE BLOOD COUNT 14.1 10^3/ul (4.8-10.8)
[2016-11-20 11:08] LABS: CALCIUM 9.2 mg/dl (8.4-10.2); POTASSIUM 3.6 mmol/L (3.5-5.1)
[2016-11-20] MEDS: ALBUTEROL/IPRATROPIUM (NEB) 3 ML AMP HHN PRN (16:59)
[2016-11-20] MEDS: ENOXAPARIN 40 MG/0.4 ML SYG SC SCH (17:17)
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
[2016-11-20 20:06] VITALS: BP 134/75; RESP 18
[2016-11-20] MEDS: ALBUTEROL/IPRATROPIUM (NEB) 3 ML AMP HHN SCH (20:17)
[2016-11-21] MEDS: ALBUTEROL/IPRATROPIUM (NEB) 3 ML AMP HHN SCH ×3 (02:11→14:42)
[2016-11-21] MEDS: ALBUTEROL HFA 8 GM INHALER INH SCH ×4 (02:24→15:46)
[2016-11-21] MEDS: ALBUTEROL/IPRATROPIUM (NEB) 3 ML AMP HHN PRN (04:52)
[2016-11-21] MEDS: METHYLPREDNISOLONE 40 MG INJ IV SCH ×2 (05:16→14:17)
[2016-11-21 07:25] VITALS: BP 155/86; RESP 18
[2016-11-21] MEDS: ENOXAPARIN 40 MG/0.4 ML SYG SC SCH (08:56)
[2016-11-21] MEDS: FLUTICASONE 0.05% 16 GM NAS SPRAY NASAL SCH (08:58)
[2016-11-21] MEDS: BENAZEPRIL 10 MG TAB PO SCH (09:05)
[2016-11-21] MEDS ORDERED: PROMETHAZINE/CODEINE 5ML CUP PO PRN (12:00)
--- NOTE | 2016-11-21 17:26 | PDOCDIS ---
Discharge Instructions CONDITION Patient Condition: Good HOME CARE INSTRUCTIONS: Diet Instructions: Reduced Calorie ACTIVITY: Activity Restrictions: Slowly Increase Activity FOLLOW UP/APPOINTMENTS Appointments PMD next week AMADO GALVAN MD Nov 21, 2016 17:26
[2016-11-21] MEDS ORDERED: Promethazine/Codeine Syp PO (17:28)
--- NOTE | 2016-11-21 18:00 | DS ---
DATE OF ADMISSION: 11/20/2016 DATE OF DISCHARGE: 11/21/2016 DISCHARGE DIAGNOSES: 1. Acute asthma attack. 2. Obesity. 3. Hypertension. 4. History of schizophrenia. 5. History of tobacco and marijuana and recent cocaine use. DISCHARGE MEDICATIONS: The patient to resume home medication as before including albuterol inhaler 2 puffs q.6 p.r.n. The patient was also given prescription for albuterol breathing machine breathing solution 2.5 mg q. 6 hours p.r.n. The patient will continue: 1. Lotensin 10 mg once a day. 2. Lasix 40 mg once a day. 3. The patient also has tapering dose of prednisone which she will continue. Another prescription for Phenergan with Codeine was given. FOLLOWUP: The patient to follow up with PMD next week. CONDITION ON DISCHARGE: Stable. DIET: Low-calorie diet. REASON FOR ADMISSION: The patient is a 56-year-old obese female with history of asthma and hyperten cleo and noncompliance. The patient also has history of schizophrenia. The patient recently was ad mitted at [facility] but left against medical advice, however returned to ER on day of admission with cough, wheezing, shortness of breath. The patient's white count was 14.1, p robably due to recent steroid use. X-ray was negative. The patient was admitted for further evalua tion and management. HOSPITAL COURSE: The patient admitted with diagnosis of acute asthma exacerbation. The patient was started on IV steroids, breathing treatment and Lovenox for DVT prophylaxis. Lotensin and Lasix we re continued. The patient improved, and today she is back to her baseline, does not have any wheezi ng. PHYSICAL EXAMINATION: VITAL SIGNS: Temperature 97.9, pulse 78, respirations 18, blood pressure 155/86, O2 saturation 98%. HEENT: No eye discharge, redness. Oropharynx clear. NECK: No mass. CHEST: Improved air entry, few scattered rhonchi. CARDIOVASCULAR: S1, S2 normal. No murmur. ABDOMEN: Soft, nondistended, nontender. EXTREMITIES: No leg edema. NEUROLOGIC: The patient is awake, alert with no gross focal deficit. The patient will be discharged home in stable condition. Dictated By: AMADO KEARNS/YOSELIN Conf#: [id number] [facility]#: [id number]
== END 2016-11-21 18:05 | disposition home or self-care (01) | DRG 202 ==
LOC: E/R 23:59 → MS1 11-20 02:09
PROVIDERS: ADMIT Internal Medicine; ATTEND Internal Medicine
DX: J45.901 Unspecified asthma with (acute) exacerbation (principal); Z68.42 Body mass index [BMI] 45.0-49.9, adult; I10 Essential (primary) hypertension; E66.9 Obesity, unspecified; Z87.891 Personal history of nicotine dependence; F20.9 Schizophrenia, unspecified
CPT/HCPCS: 71010; 80048; 85025; 94640; 94644; 94664; 96374; J1650; J2920; J2930; J7512

== ENCOUNTER 2017-10-13 08:42 | Emergency (ER) | END 2017-10-13 13:45 | disposition home or self-care (01) ==

== ENCOUNTER 2018-03-22 19:37 | Emergency (ER) | END 2018-03-22 23:56 | disposition home or self-care (01) ==

== ENCOUNTER 2018-06-30 22:43 | Emergency (ER) | END 2018-07-01 01:10 | disposition home or self-care (01) ==

== ENCOUNTER 2019-06-04 20:24 | Inpatient (IN) | payer BC, OTHER ==
[~2019-06-04] VITALS: Ht 149.9 cm; Wt 105.9 kg
[~2019-06-04 20:24] MED LIST changes: +ALBU2.5V3 NEB; +ALBU8.5H8 INH; +AMLO-145 PO; +ASPI325T30 PO; +AZIT250T PO; -BENA10TA48 PO; +BENA10TA6 PO; +BENZ200C68 PO; +HYDR-3980 PO; -HYDR-902 PO; +IBUP-1561 PO; +IBUP800T48 PO; +LEVO750T25 PO; +NICO-544 TD; +PRED20TA PO; +PRED50 PO
[2019-06-04] MEDS ORDERED: ALBUTEROL 0.083% (NEB) 2.5 MG/3 ML AMP HHN STA (21:02)
[2019-06-04] MEDS ORDERED: METHYLPREDNISOLONE 125 MG INJ IM ONE (21:30)
[2019-06-04] MEDS ORDERED: IPRATROPIUM (NEB) 0.5 MG/2.5 ML AMP HHN ONE (21:30)
[2019-06-04] MEDS ORDERED: SOD CHLORIDE 0.9% 1,000 ML IV ONE (23:00)
[2019-06-04] MEDS ORDERED: AZITHROMYCIN 500MG/NS (PMX) 250 ML IVPB ONE (23:00)
[2019-06-05] MEDS ORDERED: VANCOMYCIN 1 GM (PMX) 250 ML IVPB ONE (02:30)
[2019-06-05] MEDS ORDERED: PIPER-TAZO 3.375 GM IV (PMX) 100 ML IVPB ONE (02:30)
[2019-06-05] MEDS ORDERED: LEVALBUTEROL (NEB) 1.25 MG/0.5 ML AMP HHN ONE (03:30)
[2019-06-05] MEDS ORDERED: IPRATROPIUM (NEB) 0.5 MG/2.5 ML AMP HHN ONE (03:30)
[2019-06-05 04:37] VITALS: BP 139/88; PULSE 86; RESP 16
[2019-06-05 04:56] VITALS: Ht 149.9 cm; Wt 105.9 kg
[2019-06-05] MEDS ORDERED: ACETAMINOPHEN 325 MG TAB PO PRN (06:00)
[2019-06-05] MEDS ORDERED: PIPER-TAZO 3.375 GM IV (PMX) 100 ML IVPB SCH (06:00)
[2019-06-05] MEDS ORDERED: VANCOMYCIN IV PER PHARMACY XX SCH (06:00)
[2019-06-05] MEDS: ALBUTEROL/IPRATROPIUM (NEB) 3 ML AMP HHN PRN ×4 (06:22→22:55)
[2019-06-05] MEDS: METHYLPREDNISOLONE 125 MG INJ IV SCH ×3 (06:45→22:10)
[2019-06-05 08:00] VITALS: BP 146/79; PULSE 76; RESP 20
[2019-06-05] MEDS: FAMOTIDINE 20 MG TAB PO SCH (09:00)
[2019-06-05] MEDS: BENAZEPRIL 10 MG TAB PO SCH (10:17)
[2019-06-05] MEDS: FUROSEMIDE 40 MG TAB PO SCH (10:18)
[2019-06-05] MEDS: VANCOMYCIN 1 GM (PMX) 250 ML IVPB SCH ×2 (10:28→20:23)
[2019-06-05] MEDS: PANTOPRAZOLE (EC) 40 MG TAB PO SCH (12:30)
[2019-06-05 14:00] VITALS: BP 152/96; PULSE 96; RESP 18
[2019-06-05] MEDS: LEVOFLOXACIN 750MG/D5W (PMX) 150 ML IVPB SCH (14:38)
[2019-06-05 19:54] VITALS: BP_SYST 137; BP_SYST 174; BP_DIAS 65; BP_DIAS 81; PULSE 74; RESP 17; RESP 18
[2019-06-05] MEDS: NICOTINE (21 MG/24 HR) PATCH TRANSDERM SCH (20:21)
[2019-06-05] MEDS ORDERED: MELATONIN 3 MG TABLET PO PRN (22:00)
[2019-06-05] MEDS: PETROLATUM 5 GM OINT TOP PRN (22:10)
[2019-06-06] MEDS: ALBUTEROL/IPRATROPIUM (NEB) 3 ML AMP HHN PRN ×5 (04:23→21:23)
[2019-06-06 05:41] VITALS: BP 100/51; PULSE 77; RESP 18
[2019-06-06] MEDS: METHYLPREDNISOLONE 125 MG INJ IV SCH ×3 (05:50→22:00)
[2019-06-06] MEDS: PANTOPRAZOLE (EC) 40 MG TAB PO SCH (05:55)
[2019-06-06] MEDS: NICOTINE (21 MG/24 HR) PATCH TRANSDERM SCH (08:50)
[2019-06-06] MEDS: VANCOMYCIN 1 GM (PMX) 250 ML IVPB SCH ×2 (08:50→20:26)
[2019-06-06] MEDS: FAMOTIDINE 20 MG TAB PO SCH (09:00)
[2019-06-06 09:09] VITALS: BP 160/80; PULSE 80; RESP 18
[2019-06-06] MEDS: FUROSEMIDE 40 MG TAB PO SCH (09:59)
[2019-06-06] MEDS: BENAZEPRIL 10 MG TAB PO SCH (09:59)
[2019-06-06] MEDS: GUAIFENESIN 20 MG/ML 5ML CUP PO PRN ×2 (13:55→22:26)
[2019-06-06 14:33] VITALS: BP 131/59; PULSE 69; RESP 18
[2019-06-06 20:41] VITALS: BP 136/75; PULSE 64; RESP 20
[2019-06-07] MEDS: ALBUTEROL 0.083% (NEB) 2.5 MG/3 ML AMP HHN SCH ×6 (01:03→20:58)
[2019-06-07] MEDS: ALBUTEROL/IPRATROPIUM (NEB) 3 ML AMP HHN PRN ×5 (01:08→20:52)
[2019-06-07] MEDS: ZOLPIDEM 5 MG TAB PO PRN ×2 (01:52→22:37)
[2019-06-07 02:28] VITALS: BP 175/89; PULSE 60; RESP 18
[2019-06-07] MEDS: GUAIFENESIN 20 MG/ML 5ML CUP PO PRN ×5 (02:35→23:43)
[2019-06-07] MEDS: PANTOPRAZOLE (EC) 40 MG TAB PO SCH (06:00)
[2019-06-07] MEDS: METHYLPREDNISOLONE 125 MG INJ IV SCH ×3 (06:00→22:37)
[2019-06-07] MEDS: NICOTINE (21 MG/24 HR) PATCH TRANSDERM SCH (08:43)
[2019-06-07] MEDS: BENAZEPRIL 10 MG TAB PO SCH (08:43)
[2019-06-07] MEDS: FUROSEMIDE 40 MG TAB PO SCH (08:45)
[2019-06-07] MEDS: FAMOTIDINE 20 MG TAB PO SCH (08:47)
[2019-06-07 08:51] VITALS: BP 171/81; PULSE 60; RESP 20
[2019-06-07] MEDS: LEVOFLOXACIN 750MG/D5W (PMX) 150 ML IVPB SCH (11:13)
[2019-06-07 15:02] VITALS: BP 146/77; PULSE 80; RESP 18
[2019-06-07] MEDS: PETROLATUM 5 GM OINT TOP PRN (15:05)
[2019-06-07 20:00] VITALS: BP 179/74; PULSE 63; RESP 17
[2019-06-07 22:00] VITALS: BP 152/72; PULSE 72
[2019-06-08] MEDS: ALBUTEROL/IPRATROPIUM (NEB) 3 ML AMP HHN PRN ×5 (00:46→17:48)
[2019-06-08] MEDS: ALBUTEROL 0.083% (NEB) 2.5 MG/3 ML AMP HHN SCH ×6 (01:00→22:33)
[2019-06-08 02:00] VITALS: BP 175/87; PULSE 78; RESP 19
[2019-06-08] MEDS: METHYLPREDNISOLONE 125 MG INJ IV SCH ×2 (05:11→17:10)
[2019-06-08] MEDS: PANTOPRAZOLE (EC) 40 MG TAB PO SCH (05:11)
[2019-06-08 08:30] VITALS: BP 146/103; PULSE 67; RESP 16
[2019-06-08] MEDS: BENAZEPRIL 10 MG TAB PO SCH (08:34)
[2019-06-08] MEDS: FUROSEMIDE 40 MG TAB PO SCH (08:35)
[2019-06-08] MEDS: NICOTINE (21 MG/24 HR) PATCH TRANSDERM SCH (08:35)
[2019-06-08] MEDS: FAMOTIDINE 20 MG TAB PO SCH (08:37)
[2019-06-08] MEDS: GUAIFENESIN 20 MG/ML 5ML CUP PO PRN ×2 (10:29→20:24)
[2019-06-08] MEDS ORDERED: METHYLPREDNISOLONE 125 MG INJ IV SCH (12:00)
[2019-06-08 14:21] VITALS: BP 169/74; PULSE 64; RESP 20
[2019-06-08 20:00] VITALS: BP 177/81; PULSE 65; RESP 19
[2019-06-08 21:00] VITALS: BP 174/89; PULSE 70
[2019-06-08 21:06] VITALS: BP 177/81; PULSE 65; RESP 19
[2019-06-08] MEDS: ZOLPIDEM 5 MG TAB PO PRN (21:48)
[2019-06-08] MEDS ORDERED: AMLODIPINE 5 MG TAB PO ONE (22:30)
[2019-06-09] MEDS: METHYLPREDNISOLONE 125 MG INJ IV SCH ×2 (00:05→05:52)
[2019-06-09 00:09] VITALS: BP 172/88; PULSE 79; RESP 18
[2019-06-09] MEDS: ALBUTEROL 0.083% (NEB) 2.5 MG/3 ML AMP HHN SCH ×3 (01:00→08:55)
[2019-06-09] MEDS: ALBUTEROL/IPRATROPIUM (NEB) 3 ML AMP HHN PRN ×3 (03:18→06:02)
[2019-06-09] MEDS: PANTOPRAZOLE (EC) 40 MG TAB PO SCH (05:52)
[2019-06-09] MEDS: NICOTINE (21 MG/24 HR) PATCH TRANSDERM SCH (08:09)
[2019-06-09] MEDS: BENAZEPRIL 10 MG TAB PO SCH (08:10)
[2019-06-09] MEDS: FUROSEMIDE 40 MG TAB PO SCH (08:11)
[2019-06-09] MEDS: FAMOTIDINE 20 MG TAB PO SCH (08:15)
[2019-06-09] MEDS: PETROLATUM 5 GM OINT TOP PRN (08:34)
[2019-06-09 08:35] VITALS: BP 167/80; PULSE 70; RESP 16
[2019-06-09] MEDS ORDERED: AMLODIPINE 5 MG TAB PO SCH (09:00)
[2019-06-09] MEDS ORDERED: LEVOFLOXACIN 750 MG TABLET PO SCH (11:00)
== END 2019-06-09 13:00 | disposition home or self-care (01) | DRG 194 ==
LOC: FTE 20:24 → 5EC 06-05 03:28
PROVIDERS: ADMIT Internal Medicine; ATTEND Internal Medicine
DX: J15.9 Unspecified bacterial pneumonia (principal); J44.0 Chronic obstructive pulmonary disease with (acute) lower respiratory infection; I10 Essential (primary) hypertension; Y95 Nosocomial condition; J45.998 Other asthma
CPT/HCPCS: 71045; 71250; 80048; 80053; 80061; 83605; 83735; 83880; 84484; 85025; 85610; 85730; 93005; 94640; 94664; 96372; 96374; 96375; J0456; J1956; J2543; J2930; J3370; J7030

== ENCOUNTER 2019-06-14 00:54 | Inpatient (IN) | payer OTHER ==
[~2019-06-14] VITALS: Ht 149.9 cm; Wt 109.7 kg
[~2019-06-14 00:54] MED LIST changes: -ALBU18HF INHALATION; -ASPI325T30 PO; -AZIT250T PO; -BENZ200C68 PO; -HYDR-3980 PO; -IBUP-1561 PO; -IBUP800T48 PO; -NICO-544 TD; -PRED20TA PO; -PRED50 PO
[2019-06-14 01:02] VITALS: Ht 149.9 cm; Wt 109.7 kg
[2019-06-14] MEDS ORDERED: ALBUTEROL 0.5% (NEB) 2.5 MG/0.5 ML AMP INH STA (01:07)
[2019-06-14] MEDS ORDERED: IPRATROPIUM (NEB) 0.5 MG/2.5 ML AMP INH STA (01:07)
[2019-06-14] MEDS ORDERED: predniSONE 20 MG TAB PO STA (01:07)
[2019-06-14] MEDS ORDERED: MAGNESIUM SULFATE 2 GM/50 ML 50 ML IVPB STA (01:18)
[2019-06-14] MEDS ORDERED: SOD CHLORIDE 0.9% 1,000 ML IV STA (01:18)
[2019-06-14] MEDS ORDERED: LIDOCAINE 4% CR TOP ONE (03:00)
[2019-06-14] MEDS ORDERED: ACETAMINOPHEN 325 MG TAB PO PRN (04:00)
[2019-06-14] MEDS ORDERED: ONDANSETRON 4 MG INJ IV PRN (04:00)
[2019-06-14] MEDS: METHYLPREDNISOLONE 125 MG INJ IV SCH ×2 (07:17→14:15)
[2019-06-14] MEDS: ALBUTEROL/IPRATROPIUM (NEB) 3 ML AMP HHN SCH ×3 (07:20→12:45)
[2019-06-14] MEDS ORDERED: PROMETHAZINE/CODEINE 5ML CUP PO PRN (07:30)
[2019-06-14 07:53] VITALS: BP 153/76; PULSE 80; RESP 20
[2019-06-14] MEDS ORDERED: FUROSEMIDE 40 MG TAB PO SCH (10:00)
[2019-06-14] MEDS ORDERED: BENAZEPRIL 10 MG TAB PO SCH (10:00)
[2019-06-14] MEDS ORDERED: FLUTICASONE 0.05% 16 GM NAS SPRAY NASAL SCH (10:00)
[2019-06-14] MEDS ORDERED: AMLODIPINE 5 MG TAB PO SCH (10:00)
[2019-06-14] MEDS ORDERED: LEVOFLOXACIN 750 MG TABLET PO SCH (10:00)
[2019-06-14] MEDS ORDERED: NICOTINE (21 MG/24 HR) PATCH TRANSDERM SCH (10:30)
[2019-06-14] MEDS ORDERED: FUROSEMIDE 40 MG INJ IV SCH (11:30)
[2019-06-14 14:43] VITALS: BP 145/83; PULSE 86; RESP 18
[2019-06-15] MEDS ORDERED: LEVOFLOXACIN 500 MG TAB PO SCH (06:00)
== END 2019-06-14 17:30 | disposition left against medical advice (07) | DRG 190 ==
LOC: E/R 00:54 → 2NE 03:42
PROVIDERS: ADMIT Internal Medicine; ATTEND Internal Medicine
DX: J44.1 Chronic obstructive pulmonary disease with (acute) exacerbation (principal); J18.1 Lobar pneumonia, unspecified organism; Z68.42 Body mass index [BMI] 45.0-49.9, adult; J45.21 Mild intermittent asthma with (acute) exacerbation; J44.0 Chronic obstructive pulmonary disease with (acute) lower respiratory infection; F17.210 Nicotine dependence, cigarettes, uncomplicated; E66.8 Other obesity
CPT/HCPCS: 71045; 80048; 85025; 94640; 94644; 94664; 96374; J1940; J2930; J3475; J7030; J7512